=== PATIENT | female | born 1980 | race Caucasian/White ===

== ENCOUNTER 2016-12-10 18:25 | Emergency (ER) | payer SELFPAY ==
[2016-12-10 18:58] VITALS: BP 147/77
--- NOTE | 2016-12-10 19:25 | UC ---
Hip/Pelvis Pain - HPI Summary HPI Summary: 36 year old female presents with right hip pain after kicking a soccer ball. - History Of Current Complaint Chief Complaint: UCLowerExtremity Stated Complaint: HIP INJURY Time Seen by Provider: 12/10/16 19:25 Hx Obtained From: Patient Hx Last Menstrual Period: 2 wks ago Onset/Duration: Sudden Onset Severity Initially: Moderate Severity Currently: Moderate Pain Scale Used: 0-10 Numeric - 8 Location: Diffuse, Discrete At: Character Of Pain: Sharp Aggravating Factor(s): Nothing Alleviating Factor(s): Rest, Position Associated Signs And Symptoms: Positive: Negative - Allergies/Home Medications Allergies/Adverse Reactions: Allergies Allergy/AdvReac Type Severity Reaction Status Date / Time No Known Allergies Allergy Verified 12/10/16 18:58 Home Medications: Home Medications Acetaminophen TAB* [Tylenol TAB*] 3 tab PO ONCE 12/10/16 [History Confirmed ] PMH/Surg Hx/FS Hx/Imm Hx Previously Healthy: Yes - Surgical History Surgical History: None - Social History Alcohol Use: Occasionally Substance Use Type: None Smoking Status (MU): Current Some Day Smoker Review of Systems Constitutional: Negative Skin: Negative Eyes: Negative ENT: Negative Respiratory: Negative Cardiovascular: Negative Gastrointestinal: Negative Genitourinary: Negative Motor: Negative Neurovascular: Negative Musculoskeletal: Myalgia, Other: - right hip pain Neurological: Negative Psychological: Negative All Other Systems Reviewed And Are Negative: Yes Physical Exam Triage Information Reviewed: Yes Vital Signs: Initial Vital Signs Temp 36.4 C 12/10/16 18:55 Pulse 77 12/10/16 18:55 Resp 12 12/10/16 18:55 BP 147/77 12/10/16 18:55 Pulse Ox 100 12/10/16 18:55 Vital Signs Reviewed: Yes Eye Exam: Normal ENT Exam: Normal Dental Exam: Normal Neck exam: Normal Neck: Positive: 1 Respiratory Exam: Normal Cardiovascular Exam: Normal Abdominal Exam: Normal Musculoskeletal: Positive: Other: - right hip pain Neurological Exam: Normal Psychological Exam: Normal Skin Exam: Normal Hip Injury Course/Dx - Differential Dx/Diagnosis Provider Diagnoses: right hip pain Discharge - Discharge Plan Condition: Stable Disposition: HOME Prescriptions: Meloxicam [Mobic] 7.5 mg PO BID PC #30 tab Patient Education Materials: Hip Sprain (ED) Referrals: Viviane Marsh MD [Medical Doctor] - Sarah Turner MD [Primary Care Provider] -
--- NOTE | 2016-12-10 20:20 | RAD ---
INDICATION: Right leg pain COMPARISON: None TECHNIQUE: An AP view of the pelvis and AP views of the hip in neutral and abducted position were obtained FINDINGS: Bones: There are no acute bony findings. Joint spaces: The hips articulate normally. The joint spaces are preserved. SI joints/symphysis: The SI joints and symphysis are intact. Other: None IMPRESSION: NEGATIVE EXAMINATION.
[2016-12-10] MEDS ORDERED: Acetaminop/Codeine 30 MG TAB* 1 TAB (300 MG/30 MG) PO ONE (20:22)
== END 2016-12-10 20:40 | disposition home or self-care (01) ==
LOC: UCEAST 18:25
DX: M25.551 Pain in right hip (principal); Z72.0 Tobacco use
CPT/HCPCS: 99212; A9270-GY; G0463

== ENCOUNTER 2017-09-13 09:35 | Emergency (ER) | payer BC, MEDICAID ==
--- NOTE | 2017-09-13 10:34 | UC ---
Cardiac HPI - HPI Summary HPI Summary: This 36-year-old lady comes to the urgent care today with chief complaint of chest pain radiates to her back that's episode of pain began this morning nothing brought it on nothing makes it better it does not get worse to touch. She had a similar episode 2 days ago that resolved started and resolved on its own. She has a personal history of occasional smoker and on oral contraceptives. Family history sister that of an [place] in her mid 30s grandfather from an [place] in his mid 30s. This episode of chest pain when it came on this morning she felt nauseated cold and clammy with a that is now resolved and the chest pain lingers - History of Current Complaint Chief Complaint: UCChestPain Stated Complaint: CHEST PAIN Time Seen by Provider: 09/13/17 10:25 Hx Obtained From: Patient Hx Last Menstrual Period: 2 weeks ago Onset/Duration: Sudden Onset, Still Present Timing: Constant Pain Intensity: 5 Chest Pain Location: Mid Sternal - radiating in to back Character: Dull/Aching, Tightness Aggravating Factor(s): Nothing Alleviating Factor(s): Nothing Associated Signs & Symptoms: Positive: Chest Pain, Diaphoresis - at onset, Nausea/Vomiting - nausea at on set - Allergy/Home Medications Allergies/Adverse Reactions: Allergies Allergy/AdvReac Type Severity Reaction Status Date / Time No Known Allergies Allergy Verified 12/10/16 18:58 Home Medications: Home Medications Progesterone Bcp 1 tab PO DAILY 09/13/17 [History] PMH/Surg Hx/FS Hx/Imm Hx Previously Healthy: Yes - Surgical History Surgical History: None - Family History Known Family History: Positive: Cardiac Disease - grandfather and sister mid 30's from [place] - Social History Occupation: Employed Full-time Lives: With Family Alcohol Use: Weekly Substance Use Type: None Smoking Status (MU): Current Every Day Smoker Review of Systems Constitutional: Negative Skin: Negative Eyes: Negative ENT: Negative Respiratory: Negative Cardiovascular: Chest Pain - mid sternal radiating in to back Gastrointestinal: Negative Genitourinary: Negative Motor: Negative Neurovascular: Negative Musculoskeletal: Negative Neurological: Negative Psychological: Negative Is Patient Immunocompromised?: No All Other Systems Reviewed And Are Negative: Yes Physical Exam Triage Information Reviewed: Yes Appearance: Well-Appearing, No Pain Distress, Well-Nourished Vital Signs: Initial Vital Signs Temp 98.5 F 09/13/17 09:41 Pulse 47 09/13/17 09:41 Resp 18 09/13/17 09:41 BP 121/74 09/13/17 09:41 Pulse Ox 100 09/13/17 09:41 Vital Signs Reviewed: Yes Eye Exam: Normal Eyes: Positive: Conjunctiva Clear ENT Exam: Normal ENT: Positive: Normal ENT inspection, Hearing grossly normal. Negative: Trismus , Muffled voice, Hoarse voice, Dental tenderness Dental Exam: Normal Neck exam: Normal Neck: Positive: Supple, Nontender, No Lymphadenopathy Respiratory Exam: Normal Respiratory: Positive: Chest non-tender, Lungs clear, Normal breath sounds, No respiratory distress, No accessory muscle use Cardiovascular Exam: Normal Cardiovascular: Positive: No Murmur, Pulses Normal, Brisk Capillary Refill, Bradycardia Abdominal Exam: Normal Abdomen Description: Positive: Nontender, No Organomegaly, Soft. Negative: CVA Tenderness (R), CVA Tenderness (L), Distended, Guarding, Hepatomegaly Bowel Sounds: Positive: Present Musculoskeletal Exam: Normal Musculoskeletal: Positive: Strength Intact, ROM Intact, No Edema Neurological Exam: Normal Neurological: Positive: Alert, Muscle Tone Normal Psychological Exam: Normal Skin Exam: Normal Diagnostics - EKG Cardiac Rate: Bradycardia Cardiac Rhythm: Sinus: Normal ST Segment: Normal EKG Comparison: Other - none available - Assessment/Plan Course Of Treatment: Asprin, iv, ekg transfer to [facility] emergency department for further care - Clinical Impression Provider Diagnoses: Chest pain, nicotine abuse - Physician Notifications Discussed Patient Care With: Pacheco Hammonds Time Discussed With Above Provider: 10:45 Instructed by Provider To: Transfer Discharge - Sign-Out/Discharge Documenting (check all that apply): Patient Departure - Discharge Plan Condition: Good Disposition: TRANS HIGHER LVL OF CARE FAC Referrals: Sarah Turner MD [Primary Care Provider] - - Billing Disposition and Condition Condition: GOOD Disposition: Trans Higher Lvl of Care Fac
[2017-09-13] MEDS ORDERED: Aspirin 81 mg CHEW TAB* 81 MG TAB.CHEW PO ONE (10:36)
[2017-09-13] MEDS ORDERED: Aspirin 81 mg CHEW TAB* 81 MG TAB.CHEW ONE (10:38)
[2017-09-13 11:00] VITALS: BP 116/69
== END 2017-09-13 10:55 | disposition short-term general hospital (02) ==
LOC: UCEAST 09:35
DX: R07.9 Chest pain, unspecified (principal); F17.210 Nicotine dependence, cigarettes, uncomplicated; R00.1 Bradycardia, unspecified
CPT/HCPCS: 93005; 99213; A9270-GY; G0463

== ENCOUNTER 2017-09-13 11:16 | Emergency (ER) | payer MEDICAID ==
[2017-09-13 11:41] LABS: ABS Basophils 0.1 10^3/ul (0-0.2); ABS Eosinophils 0.1 10^3/ul (0-0.6); ABS Lymphocytes 2.3 10^3/ul (1.0-4.8); ABS Monocytes 0.5 10^3/ul (0-0.8); ABS Neutrophils 3.2 10^3/ul (1.5-7.7); ABS Nucleated RBC 0 10^3/ul; Eosinophil % 2.2 % (0-6); Hematocrit 39 % (35-47); Hemoglobin 13.5 g/dl (12.0-16.0); Lymphocyte % 37.4 % (25-47); Mean Corpuscular HGB Conc 35 g/dl (31-36); Mean Corpuscular Hemoglobin 33 pg (27-31); Mean Corpuscular Volume 96 fL (80-97); Mean Platelet Volume 8.2 um3 (7.4-10.4); Nucleated Red Blood Cells % 0; Platelet Count 263 10^3/ul (150-450); Red Blood Count 4.07 10^6/ul (4.00-5.40); Red Cell Distribution Width 13 % (10.5-15); White Blood Count 6.2 10^3/ul (3.5-10.8)
[2017-09-13] MEDS ORDERED: Lidocaine 2% VISCOUS* 15 ML UDC PO ONE (11:41)
[2017-09-13] MEDS ORDERED: Al Hydrox/Mg Hydrox/Simet LIQ* 30 ML UDC PO ONE (11:41)
--- NOTE | 2017-09-13 11:45 | ED ---
HPI Chest Pain - HPI Summary HPI Summary: This is scrjolie Gtz documenting for attending Lamont Ponce MD. The patient is a 36 y/o F BIBA w/ c/o retrosternal chest pain radiating to the left side which onset this morning a couple of hours ago. Patient was drinking a cup of coffee when chest pain onset. Chest pain is described as a squeezing pain, not burning. She reports chest pain made her normal morning routine difficult. At work, her boss suggested going to the doctor. Patient went to [facility] and was subsequently sent to ED. She states that she had chest pain two days ago as well, but notes she had been moving and lifting heavy objects at that time. In the room, she states her chest pain has lessened slightly and the current pain is described as achy. On triage, pain is rated 3/10 and nothing is noted to aggravate/alleviate Sx. She denies N/V, SOB, diaphoresis, palpitations and feelings of being near LOC. Patient denies Hx of HTN, diabetes, HLD. She reports no PSHx. Patient smokes and drinks alcohol, no drug use noted. Patient reports her grandfather of [place] at 38. LNMP was 1.5 weeks ago, patient has no children. Home medications and allergies are reviewed. - History of Current Complaint Chief Complaint: EDChestPainROMI Time Seen by Provider: 09/13/17 11:34 Hx Obtained From: Patient Hx Last Menstrual Period: 2 weeks ago Onset/Duration: Started Hours Ago - onset this morning a couple of hours ago Timing: Constant Initial Severity: Moderate Current Severity: Mild - pain is noted to have lessened slightly in the room Pain Intensity: 3 Pain Scale Used: 0-10 Numeric - 3/10 Chest Pain Location: Discrete at: - retrosternal Chest Pain Radiates: Yes Chest Pain Radiates To:: Other - left side of chest Character: Pressure/Squeezing Aggravating Factor(s): Nothing Alleviating Factor(s): Nothing Associated Signs and Symptoms: Positive: Chest Pain, Other: - NEGATIVE: feelings of being near LOC. Negative: Shortness of Breath, Diaphoresis, Nausea , Palpitations, Vomiting - Allergy/Home Medications Allergies/Adverse Reactions: Allergies Allergy/AdvReac Type Severity Reaction Status Date / Time No Known Allergies Allergy Verified 12/10/16 18:58 PMH/Surg Hx/FS Hx/Imm Hx Endocrine/Hematology History: Denies: Hx Diabetes, Hx Thyroid Disease Cardiovascular History: Denies: Hx Hypercholesterolemia, Hx Hypertension, Hx Peripheral Vascular Disease Respiratory History: Denies: Hx Asthma, Hx Chronic Obstructive Pulmonary Disease (COPD) GI History: Denies: Hx Ulcer Musculoskeletal History: Denies: Hx Arthritis, Hx Osteoporosis Sensory History: Denies: Hx Cataracts, Hx Contacts or Glasses, Hx Glaucoma Opthamlomology History: Denies: Hx Cataracts, Hx Contacts or Glasses, Hx Glaucoma Neurological History: Denies: Hx Headaches, Hx Seizures, Hx Transient Ischemic Attacks (TIA) Psychiatric History: Denies: Hx Anxiety, Hx Depression Infectious Disease History: No Infectious Disease History: Denies: Hx Hepatitis, Hx Human Immunodeficiency Virus (HIV), Traveled Outside the [place] in Last 30 Days - Family History Known Family History: Positive: Cardiac Disease - grandfather and sister mid 30's from [place] - Social History Alcohol Use: Weekly Substance Use Type: Reports: None Smoking Status (MU): Current Every Day Smoker Review of Systems Negative: Skin Diaphoresis Positive: Chest Pain - described as squeezing; retrosternal, radiating to left side . Negative: Palpitations Negative: Shortness Of Breath Negative: Vomiting, Nausea Neurological: Other - NEGATIVE: feelings of being near LOC All Other Systems Reviewed And Are Negative: Yes Physical Exam - Summary Physical Exam Summary: VITAL SIGNS: Reviewed. GENERAL: Patient is a well-developed and nourished female who is lying comfortable in the stretcher. Patient is not in any acute respiratory distress. HEAD AND FACE: No signs of trauma. No ecchymosis, hematomas or skull depressions. No sinus tenderness. EYES: PERRLA, EOMI x 2, No injected conjunctiva, no nystagmus. EARS: Hearing grossly intact. Ear canals and tympanic membranes are within normal limits. MOUTH: Oropharynx within normal limits. NECK: Supple, trachea is midline, no adenopathy, no JVD, no carotid bruit, no c- spine tenderness, neck with full ROM. CHEST: Symmetric, no tenderness at palpation LUNGS: Clear to auscultation bilaterally. No wheezing or crackles. CVS: Regular rate and rhythm, S1 and S2 present, no murmurs or gallops appreciated. ABDOMEN: Soft, non-tender. No signs of distention. No rebound no guarding, and no masses palpated. Bowel sounds are normal. EXTREMITIES: FROM in all major joints, no edema, no cyanosis or clubbing. NEURO: Alert and oriented x 3. No acute neurological deficits. Speech is normal and follows commands. SKIN: Dry and warm Triage Information Reviewed: Yes Vital Signs On Initial Exam: Initial Vitals Temp Pulse Resp BP Pulse Ox 98.7 F 54 17 110/78 96 09/13/17 11:19 09/13/17 11:19 09/13/17 11:19 09/13/17 11:19 09/13/17 11:19 Vital Signs Reviewed: Yes Diagnostics - Vital Signs Vital Signs Temp Pulse Resp BP Pulse Ox 09/13/17 11:19 98.7 F 54 17 110/78 96 - Laboratory Result Diagrams: 09/13/17 10:44 09/13/17 10:44 Lab Statement: Any lab studies that have been ordered have been reviewed, and results considered in the medical decision making process. - Radiology CXR Xray Interpretation: No Acute Changes Radiology Interpretation Completed By: Radiologist - No evidence for acute disease. This report was reviewed by ED physician. - EKG 1154 Cardiac Rate: Bradycardia - Rate of 57 BPM EKG Rhythm: Sinus Bradycardia EKG Interpretation: no ST elevation, T wave inversion in V2 Re-Evaluation - Re-Evaluation First Eval Re-Evaluation Time: 14:00 Comment: Discussed tests and results so far. Second Eval Re-Evaluation Time: 15:20 Comment: Discussed results of tests and follow up plan for patient to be discharged to home and to follow up with PCP within 3 days. Patient is agreeable with plan. Chest Pain Course/Dx - Course Assessment/Plan: This patient is a 36-year-old female who presents to the emergency department with chief complaint of having retrosternal chest pain with radiation to left side. Patient reports that she had some heavy lifting a couple days ago and she thought that the pain was musculoskeletal pain. However today the pain worsened in severity therefore she decided to come to the emergency room for further workup and management. She reports no specific symptoms, no nausea, vomiting no diaphoresis no shortness of breath or palpitations. .Test results without any significant abnormality. Troponin #1 is 0.00 and 4 hours later troponin #2 is also 0.00. Chest x-ray shows no acute pathology. EKG shows no ST elevations. Since the patient doesnt have any comorbidities and the troponin is negative I have low suspicion for acute coronary syndrome. The patient is not tachycardic or hypoxic therefore have no suspicion for a PE. I discussed all the findings and test results with the patient. Patient was instructed to return to the emergency room immediately if any of the symptoms return or worsens. Plan of care was discussed with the patient and understands and agrees. All questions were answered at patient satisfaction. There were no further complaints or concerns. Lung exam before discharge: CTA B/L. Good air exchange. No wheezing or crackles heard. CVS: S1 and S2 present. No murmurs appreciated. Patient is alert and oriented x 3. Patient is hemodynamically stable. Patient will be discharged home with follow up PCP in the next 2-3 days - Chest Pain Differential Diagnosis/HQI/PQRI: Acute [place], ACS, Angina, CHF, Chest Wall, GI Disease, Lower Respiratory Infection - Diagnoses Provider Diagnoses: Atypical chest pain Discharge - Sign-Out/Discharge Documenting (check all that apply): Patient Departure - discharge - Discharge Plan Condition: Stable Disposition: HOME Patient Education Materials: Chest Pain (ED) Referrals: Sarah Turner MD [Medical Doctor] - 3 Days Additional Instructions: Return to ED for any new or worsening symptoms.
[2017-09-13 12:02] LABS: EGFR Non-African American 82.3 (>60)
--- NOTE | 2017-09-13 12:11 | RAD ---
INDICATION: Chest pain. COMPARISON: There are no prior studies available for comparison. TECHNIQUE: A portable view of the chest was obtained. FINDINGS: Cardiac and mediastinal contours appear to be within normal limits. The lungs are clear. No pleural effusion is seen. IMPRESSION: NO EVIDENCE FOR ACUTE DISEASE.
[2017-09-13 15:17] VITALS: BP 121/66
== END 2017-09-13 15:16 | disposition home or self-care (01) ==
LOC: ED 11:16
DX: R07.89 Other chest pain (principal); R00.1 Bradycardia, unspecified; Z82.49 Family history of ischemic heart disease and other diseases of the circulatory system; F12.10 Cannabis abuse, uncomplicated
CPT/HCPCS: 36415; 71045; 80053; 83605; 84484; 84702; 85025; 86140; 93005; 99283; A9270-GY

== ENCOUNTER 2019-02-14 10:16 | Emergency (ER) | payer BC, OTHER ==
--- OUTSIDE RECORDS SUMMARY | 2019-02-14 10:23 | XMS REPORT | Continuity of Care Document ---
:1980 External Reference #:[id number] Author Name Yoly Holloway, DO Address [address] [place] [id number] Problems Inactive Problems Provider Date Acute sinusitis Onset: 09/19/2018 Inactive: 09/19/2018 Social History Type Date Description Comments Sex Unknown Tobacco Use Start: Unknown End: Patient is a former smoker Smoking Status Reviewed: 02/09/19 Patient is a former smoker Allergies, Adverse Reactions, Alerts Description No Known Drug Allergies Medications Active Medications SIG Qnty Indications Ordering Date Provider Cyclobenzaprine HCL one tablet by 15tabs Yoly 02/09/2019 5mg mouth every 8 Karnow, DO Tablets hours as needed for muscle spasm Fluticasone Propionate 2 sprays daily 16units Unknown 08/04/2018 per nostril 50mcg/Act Suspension Nasal History Medications Amoxicillin/Clavulanate Potassium 1 twice daily 20tabs Unknown 2018 - 875-125mg Oral 09/29/2018 Tablets Immunizations CPT Code Status Date Vaccine Lot # [id number] Given 06/24/2009 Tdap - Boostrix/Adacel [id number] Refused 02/09/2015 Influenza Virus Vaccine, Quadrivalent, Split, Im Use 0.25ML Vital Signs Date Vital Result Comment 02/09/2019 3:14pm BP Systolic 118 mmHg BP Diastolic 60 mmHg Height 63.5 inches 5'3.50" Weight 203.00 lb Heart Rate 65 /min Body Temperature 98.5 F O2 % BldC Oximetry 99 % BMI (Body Mass Index) 35.4 kg/m2 09/19/2018 12:00pm BP Systolic 122 mmHg Weight 196.00 lb Heart Rate 55 /min Body Temperature 98.4 F O2 % BldC Oximetry 98 % Results Test Acquired Date Facility Test Result H/L Range Note Urinalysis Profile 02/09/2019 [facility] Urine Color Yellow [address] [place] [address] [phone] Urine Appearance Cloudy Urine Specific [place] 1.013 Normal 1.010-1.030 Urine pH 5.0 Normal 5-9 Urine Urobilinogen Negative Negative Urine Ketones Negative Negative Urine Protein Negative Negative Urine Leukocytes Negative Negative Urine Blood 1+ Abnormal Negative Urine Nitrite Negative Negative Urine Bilirubin Negative Negative Urine Glucose Negative Negative Urine White Blood Cell Trace(0-5/hpf) Absent Urine Red Blood Cell Trace(0-2/hpf) Absent Urine Bacteria 1+ Abnormal Absent Urine Squamous Epithelial Cell Present Abnormal Absent CFM Urinalysis 02/09/2019 [facility] Urine Specific [place] 1.020 ( )- - Ua PH Test Strip 6.0 Ua Color <pending> Ua Appearance <pending> Ua WBC neg Ua Protein neg Urine Glucose QL neg Urine Ketones QL Test Strip neg Urine Bilirubin TTL QL T-Strip neg Urine Urobilinogen QN TS 0.2 Urine Nitrite QL TS neg Ua Occult Blood trace intact Procedures Description No Information Available Medical Devices Description No Information Available Encounters Type Date Location Provider Dx Diagnosis Office Visit 02/09/2019 [facility] Yoly HollowayDO R10.9 Unspecified abdominal 3:15p pain M54.5 Low back pain Assessments Date Code Description Provider 02/09/2019 R10.9 Unspecified abdominal pain Yolycaridad HollowayDO 02/09/2019 M54.5 Low back pain Yolycaridad HollowayDO Plan of Treatment 02/09/2019 - Yoly Holloway DOR10.9 Unspecified abdominal painComments:Left sided flank pain NO CVA tendernessUA with trace blood but very recently finished her mensesdiscussed at some length the possibility I think this is most likely musculoskeletal HOWEVER we discussedother things I was thinking of- kidney stone- pyelo- shinglesWith only trace blood, pain really being on side and not kidney area and not radiating, I think reasonable to monitor for worsening prior togetting imaging to confirm a stone - discussed in detail s/s and when to go to ERVery unlikely pyelogiven no WBCs in urine and lack of systemic symptoms Possibly shingles given isolated area of pain -discussed when to seek medical attention for thisRecommend OTC medsHydrateTry muscle relaxer to see if possibly helps ER if acute [id number] Low back painAllNew Medication:Cyclobenzaprine HCL 5 mg - one tablet by mouth every 8 hours as needed for muscle spasmComments:Follow up if symptoms change, worsen or new symptoms develop or if not better in a reasonable amountof time Functional Status Description No Information Available Mental Status Description No Information Available Referrals Description No Information Available
--- OUTSIDE RECORDS SUMMARY | 2019-02-14 10:23 | XMS REPORT | Continuity of Care Document ---
:1980 External Reference #:[id number] Author Name Yoly Holloway, DO Address [address] [place] [id number] Problems Inactive Problems Provider Date Acute sinusitis [...] CPT Code Status Date Vaccine Lot # [id number] Given 06/24/2009 Tdap - Boostrix/Adacel [id number] Refused 02/09/2015 Influenza Virus Vaccine, Quadrivalent, Split, [...] Result H/L Range Note Urinalysis Profile 02/09/2019 [facility] Urine Color Yellow [address] [place] [address] [phone] Urine Appearance Cloudy Urine Specific [place] 1.013 Normal 1.010-1.030 Urine pH 5.0 Normal [...] Urine Squamous Epithelial Cell Present Abnormal Absent Urine Culture And 02/09/2019 [facility] Urine Culture SEE RESULT [address] [place] [address] [phone] CFM Urinalysis 02/09/2019 [facility] Urine Specific 1.020 ( )- - [place] Ua PH Test Strip 6.0 Ua Color <pending> Ua Appearance <pending> Ua WBC neg Ua Protein neg Urine Glucose QL neg Urine Ketones QL Test Strip neg Urine Bilirubin TTL QL T-Strip neg Urine Urobilinogen QN TS 0.2 Urine Nitrite QL TS neg Ua Occult Blood trace intact 1 SEE RESULT BELOW Name: LUCAS CANELA : [address]: Yoly Holloway DO Acct: [id number] Unit: [id number] AGE: 38 Location: [facility] Re02/09/19 SEX: F Status: REG REF SPEC: [id number] KUSUM: 02/09/[address]: Yoly Holloway DO REQ: [id number] RECD: 02/09/19 STATUS: COMP _ SOURCE: URINE SPDESC: ORDERED: Urine Culture Procedure Result Reported Site Urine Culture Final 02/11/19- 31 ML No growth of clinically significant organisms * ML - Main Lab . END OF REPORT DEPARTMENT OF PATHOLOGY, [address] [place] [address] Nile Damon M.D. Director [facility] # [id number] Procedures Description No Information Available Medical Devices Description No Information Available Encounters Type Date Location Provider Dx Diagnosis Office Visit 02/09/2019 [facility] Main Yoly Holloway DO R10.9 Unspecified abdominal 3:15p pain M54.5 Low back pain Assessments Date Code Description Provider 02/09/2019 R10.9 Unspecified abdominal pain Yoly Holloway DO 02/09/2019 M54.5 Low back pain Yoly Holloway DO Plan of Treatment 02/09/2019 - Yoly Holloway [...] see if possibly helps ER if acute [id number] Low back painAllNew Medication:Cyclobenzaprine HCL 5 mg - one tablet by mouth every 8 hours as needed for muscle spasmComments:Follow up if symptoms change, worsen or new symptoms develop or if not better in a reasonable amountof time Functional Status Description No Information Available Mental Status Description No Information Available Referrals Description No Information Available
[2019-02-14 10:28] VITALS: BP 128/89
--- NOTE | 2019-02-14 11:15 | UC ---
Abdominal Pain Female HPI - HPI Summary HPI Summary: Patient presents to urgent care for evaluation of left abdominal flank pain. Patient states his been intermittent since Saturday. Patient states she saw her primary care doctor Saturday and was told she had some microscopic blood in her urine. Patient was started on Flexeril for back pain. Patient states she continues to have intermittent episodes of pain. States a similar but worse when she lies down. Pain can be sharp and intense. Patient with difficulty getting comfortable during episodes. Patient has had some nausea but no vomiting with the pain is at its worst. Currently the pain is not so bad but states last" couple times. Patient denies any urinary symptoms. No vaginal discharge. No vomiting. No fevers or chills. No trauma. Patient's mother has a history of renal colic. Patient's medications is entered in the EMR by triage was reviewed this visit. - History of Current Complaint Chief Complaint: UCGU Stated Complaint: ABDOMINAL COMPLAINT Time Seen by Provider: 02/14/19 10:48 Hx Obtained From: Patient Hx Last Menstrual Period: 02/04/19 Pain Intensity: 3 Allergies/Adverse Reactions: Allergies Allergy/AdvReac Type Severity Reaction Status Date / Time No Known Allergies Allergy Verified 02/14/19 11:45 PMH/Surg Hx/FS Hx/Imm Hx Previously Healthy: Yes - Surgical History Surgical History: None - Family History Known Family History: Positive: Cardiac Disease - grandfather and sister mid 30's from [place], Other - Mom with renal colic - Social History Occupation: Employed Full-time Lives: With Family Alcohol Use: Weekly Substance Use Type: None Smoking Status (MU): Smoker, Current Status Unknown Review of Systems All Other Systems Reviewed And Are Negative: Yes Constitutional: Positive: Negative Skin: Positive: Negative Eyes: Positive: Negative ENT: Positive: Negative Respiratory: Positive: Negative Cardiovascular: Positive: Negative Gastrointestinal: Positive: Abdominal Pain, Nausea Physical Exam - Summary Physical Exam Summary: Vital Signs Reviewed: Yes A+Ox3, no distress, easily change positions Eyes: Conjunctiva Clear, ANIKA. EOM intact and full ENT: Hearing grossly normal TM x 2 clear, mmoist, uvula midline, no exudate, no erythema Neck: Positive: Supple Respiratory: Positive: No respiratory distress, No accessory muscle use + CTA throughout no w/r Cardiovascular: RRR nl s1, s2 no m/r CBT <2 sec abd soft + BS nt/nd no guarding, no distension, no CVA, unable to reproduce discomfort - full AROM upper and lower against resistance Musculoskeletal Exam: YU x 4 without difficulty Strength Intact, ROM Intact Neurological: Positive: Alert, + sensation throughout Psychological: Positive: Normal Response To examiner Skin: Positive: no rash, no ecchymosis, no rash Triage Information Reviewed: Yes Vital Signs: Initial Vital Signs Temp 98.4 F 02/14/19 10:22 Pulse 60 02/14/19 10:22 Resp 16 02/14/19 10:22 BP 128/89 02/14/19 10:22 Pulse Ox 100 02/14/19 10:22 Abd Pain Female Course/Dx - Course Course Of Treatment: Patient presents urgent care with intermittent but increasing in frequency and intensity left flank pain since Saturday. Patient states the PCPs office on Saturday had a little blood in her urine. Patient was started on Flexeril and treated as muscle for back pain. Patient taking Flexeril she says just makes her sleepy as well as Motrin that seems to help however continues to have episodes of pain. Patient states pain is not reproducible and she has no rash. No fevers chills or urinary symptoms. On exam vital signs are stable. Patient points to her left mid axillary line left mid abdominal area when asked for pain's. Pain is not reproduced. Discussed patient's urine urgent care again has some trace red blood cells. Recommend patient could emergency department for further evaluation and treatment will likely include imaging services are not available at her daycare today. Patient states understanding of plan. She will drive herself by private vehicle. Patient declined any analgesia currently and she took some this morning. I did speak to Lupe, charge nurse in the emergency department, aware patient is coming - Differential Dx/Diagnosis Provider Diagnosis: Left flank pain, Microscopic hematuria Discharge ED - Sign-Out/Discharge Documenting (check all that apply): Patient Departure All imaging exams completed and their final reports reviewed: No Studies - Discharge Plan Condition: Stable Disposition: HOME-RECOMMEND TO ED Patient Education Materials: Hematuria (ED), Flank Pain (ED) Referrals: No Primary Care Phys,NOPCP [Primary Care Provider] - Additional Instructions: The doctor that evaluated you today thinks that you need additional testing that can be completed the emergency department. It is recommended that you go directly to emergency department for further evaluation. This evaluation may include blood work or imaging. This testing will be directed and decided by the provider that evaluate you at the emergency department. If pain becomes worse, you feel lightheaded, you have uncontrolled vomiting, or you have any other concerns while you are being driven to emergency department as recommended to pullover and contact 911. - Billing Disposition and Condition Condition: STABLE Disposition: Home-Recommend to ED
== END 2019-02-14 11:24 | disposition home health service (06) ==
LOC: UCEAST 10:16
DX: R31.29 Other microscopic hematuria (principal); R10.9 Unspecified abdominal pain; R35.0 Frequency of micturition; F17.200 Nicotine dependence, unspecified, uncomplicated
CPT/HCPCS: 81003; 99212; G0463

== ENCOUNTER 2019-02-14 11:37 | Emergency (ER) | payer BC, OTHER ==
--- NOTE | 2019-02-14 12:51 | ED ---
GI/ HPI - HPI Summary HPI Summary: 38 y/o female presented to [facility] with CC of stabbing pain in left flank beginning 02/08/19. Pain is intermittent, worsened with movement and improved when sitting still. The pain also becomes worse at night. Patient does not feel pain when urinating and palpating the left flank does not increase pain. UA done at [facility] found blood in urine, but no indications for UTI or kidney infection. She took Flexeril and ibuprofen this morning but claims that the Flexeril did not help her symptoms. - History of Current Complaint Chief Complaint: EDFlankPain Time Seen by Provider: 02/14/19 12:33 Stated Complaint: FLANK PAIN,PER PT Hx Obtained From: Patient Hx Last Menstrual Period: 02/04/19 Onset/Duration: Started Days Ago Timing: Intermittent Severity: Severe Current Severity: Mild Pain Intensity: 0 Location of Pain: Flank - left Pain Characteristics: Sharp Aggravating Factor(s): Movement Alleviating Factor(s): Lying Still - Allergy/Home Medications Allergies/Adverse Reactions: Allergies Allergy/AdvReac Type Severity Reaction Status Date / Time No Known Allergies Allergy Verified 02/14/19 11:45 Home Medications: Home Medications NK [No Home Medications Reported] 02/14/19 [History Confirmed 02/14/19] PMH/Surg Hx/FS Hx/Imm Hx Endocrine/Hematology History: Denies: Hx Diabetes, Hx Thyroid Disease Cardiovascular History: Denies: Hx Hypercholesterolemia, Hx Hypertension, Hx Peripheral Vascular Disease Respiratory History: Denies: Hx Asthma, Hx Chronic Obstructive Pulmonary Disease (COPD) GI History: Denies: Hx Ulcer Musculoskeletal History: Denies: Hx Arthritis, Hx Osteoporosis Sensory History: Denies: Hx Cataracts, Hx Contacts or Glasses, Hx Glaucoma Opthamlomology History: Denies: Hx Cataracts, Hx Contacts or Glasses, Hx Glaucoma Neurological History: Denies: Hx Headaches, Hx Seizures, Hx Transient Ischemic Attacks (TIA) Psychiatric History: Denies: Hx Anxiety, Hx Depression Infectious Disease History: No Infectious Disease History: Denies: Hx Hepatitis, Hx Human Immunodeficiency Virus (HIV), Traveled Outside the [place] in Last 30 Days - Family History Known Family History: Positive: Cardiac Disease - grandfather and sister mid 30's from [place] - Social History Alcohol Use: Weekly Substance Use Type: Reports: None Smoking Status (MU): Smoker, Current Status Unknown Review of Systems Negative: Fever - vitals show temp 97.8F Positive: flank pain, hematuria All Other Systems Reviewed And Are Negative: Yes Physical Exam - Summary Physical Exam Summary: Appearance: The patient is obese in no acute distress and in no acute pain. Skin: The skin is warm and dry, and skin color reflects adequate perfusion. HEENT: The head is normocephalic and atraumatic. The pupils are equal and reactive. The conjunctivae are clear and without drainage. Nares are patent and without drainage. Mouth reveals moist mucous membranes, and the throat is without erythema and exudate. The external ears are intact. The ear canals are patent and without drainage. The tympanic membranes are intact. Neck: The neck is supple with full range of motion and non-tender. There are no carotid bruits. There is no neck vein distension. Respiratory: Chest is non-tender. Lungs are clear to auscultation and breath sounds are symmetrical and equal. Cardiovascular: Heart is regular rate and rhythm. There is no murmur or rub auscultated. There is no peripheral edema and pulses are symmetrical and equal. Abdomen: The abdomen is soft and non-tender. There are normal bowel sounds heard in all four quadrants and there is no organomegaly palpated. Musculoskeletal: There is no back tenderness noted. Extremities are non-tender with full range of motion. There is good capillary refill. There is no peripheral edema or calf tenderness elicited. Neurological: Patient is alert and oriented to person, place and time. The patient has symmetrical motor strength in all four extremities. Cranial nerves are grossly intact. Deep tendon reflexes are symmetrical and equal in all four extremities. Psychiatric: The patient has an appropriate affect and does not exhibit any anxiety or depression. Triage Information Reviewed: Yes Vital Signs On Initial Exam: Initial Vitals Temp Pulse Resp BP Pulse Ox 97.8 F 55 16 134/90 99 02/14/19 11:42 02/14/19 11:42 02/14/19 11:42 02/14/19 11:42 02/14/19 11:42 Vital Signs Reviewed: Yes Procedures - Sedation Patient Received Moderate/Deep Sedation with Procedure: No Diagnostics - Vital Signs Vital Signs Temp Pulse Resp BP Pulse Ox 02/14/19 11:42 97.8 F 55 16 134/90 99 - Laboratory Result Diagrams: 02/14/19 12:57 02/14/19 12:57 Lab Statement: Any lab studies that have been ordered have been reviewed, and results considered in the medical decision making process. - CT CT ABD/PEL CT Interpretation Completed By: Radiologist Summary of CT Findings: IMPRESSION: 1. NO EVIDENCE FOR ACUTE FINDING. 2. SMALL 2 MM NONOBSTRUCTING RIGHT RENAL CALCULUS. 3. DISTENDED URINARY BLADDER. 4. SMALL HIATAL HERNIA. 5. HEPATIC STEATOSIS. THIS REPORT WAS REVIEWED BY ED PHYSICIAN. GIGU Course/Dx - Course Course Of Treatment: Ms. Canela presented with left flank pain. It seems more musculoskeletal but she's been sent over with a concern for possible kidney stone secondary to microscopic hematuria. CT scan was obtained because of an ultrasound would not give us a definitive diagnosis and was negative. I will continue to treat her symptomatically and recommended close follow-up. - Diagnoses Provider Diagnoses: Back pain Discharge ED - Sign-Out/Discharge Documenting (check all that apply): Patient Departure - DC - Discharge Plan Condition: Stable Disposition: HOME Patient Education Materials: Back Pain (ED) Referrals: [facility] [Outside] Additional Instructions: Follow up with Primary Care Physician in 1-3 days. If you experience new or worsening symptoms please return to the ED. - Billing Disposition and Condition Condition: STABLE Disposition: Home - Attestation Statements Document Initiated by Aakash: Yes Documenting Scribe: KESHAWN TSE Provider For Whom Aakash is Documenting (Include Credential): LALI CORDOVA MD Scribe Attestation: KESHAWN Smith, scribed for LALI CORDOVA MD on 02/16/19 at 1615. Scribe Documentation Reviewed: Yes Provider Attestation: The documentation as recorded by the KESHAWN mckinley accurately reflects the service I personally performed and the decisions made by me, LALI CORDOVA MD Status of Scribradha Document: Viewed
[2019-02-14 13:09] LABS: ABS Basophils 0.1 10^3/ul (0-0.2); ABS Eosinophils 0.1 10^3/ul (0-0.6); ABS Lymphocytes 1.8 10^3/ul (1.0-4.8); ABS Monocytes 0.3 10^3/ul (0-0.8); ABS Neutrophils 2.9 10^3/ul (1.5-7.7); Eosinophil % 2.1 %; Hematocrit 38 % (35-47); Hemoglobin 13.4 g/dL (12.0-16.0); Lymphocyte % 34.4 %; Mean Corpuscular HGB Conc 35 g/dL (31-36); Mean Corpuscular Hemoglobin 33 pg (27-31); Mean Corpuscular Volume 95 fL (80-97); Mean Platelet Volume 7.3 fL (7.4-10.4); Nucleated Red Blood Cells % 0.1; Platelet Count 293 10^3/uL (150-450); Red Blood Count 4.01 10^6 /uL (3.70-4.87); Red Cell Distribution Width 13 % (10-15); White Blood Count 5.2 10^3/uL (3.5-10.8)
[2019-02-14 13:44] LABS: ALT 41 U/L (7-52); AST 29 U/L (13-39); Albumin 4.3 g/dL (3.2-5.2); Albumin/Globulin Ratio 1.7 (1-3); Alkaline Phosphatase 55 U/L (34-104); Anion Gap 7 mmol/L (2-11); Blood Urea Nitrogen 10 mg/dL (6-24); C Reactive Protein 5.38 mg/L (<8.01); CO2 Carbon Dioxide 26 mmol/L (22-32); Calcium 9.3 mg/dL (8.6-10.3); Chloride 102 mmol/L (101-111); EGFR African American 101.5 (>60); EGFR Non-African American 83.9 (>60); Globulin 2.6 g/dL (2-4); Glucose 93 mg/dL (70-100); Potassium 4.2 mmol/L (3.5-5.0); Sodium 135 mmol/L (135-145); Total Protein 6.9 g/dL (6.4-8.9)
[2019-02-14 13:51] LABS: HCG Pregnancy < 0.60 mIU/mL
[2019-02-14 15:24] LABS: Urine Appearance Clear; Urine Bilirubin Negative (Negative); Urine Blood Negative (Negative); Urine Color Straw; Urine Glucose Negative (Negative); Urine Ketones Negative (Negative); Urine Nitrite Negative (Negative); Urine Protein Negative (Negative); Urine Specific Gravity 1.005 (1.010-1.030); Urine Urobilinogen Negative (Negative)
[2019-02-14 16:33] VITALS: BP 135/89
== END 2019-02-14 16:25 | disposition home or self-care (01) ==
LOC: ED 11:37
DX: M54.9 Dorsalgia, unspecified (principal); N20.0 Calculus of kidney; K44.9 Diaphragmatic hernia without obstruction or gangrene; K76.0 Fatty (change of) liver, not elsewhere classified; F17.200 Nicotine dependence, unspecified, uncomplicated
CPT/HCPCS: 36415; 74176; 80053; 81003; 83605; 84702; 85025; 86140; 99282

== ENCOUNTER 2020-02-22 18:04 | Inpatient (IN) ==
[2020-02-22] MEDS ORDERED: Lactated Ringers 1000 ml BAG 1,000 ML IV ONE (18:41)
[2020-02-22] MEDS ORDERED: Dinoprostone 10 MG VAG.SUPP VAGINAL ONE (18:41)
[2020-02-22] MEDS ORDERED: Buffered Lidocaine 1% SYRIN 1 ml INTRADERM ONE (18:41)
[2020-02-22 20:24] LABS: Urine Benzodiazepine Screen None Detected (None Detect); Urine Cannabinoids Screen None Detected (None Detect); Urine Opiates Screen None Detected (None Detect)
[2020-02-23 20:12] LABS: ABS Eosinophils 0.1 10^3/ul (0-0.6); ABS Lymphocytes 1.9 10^3/ul (1.0-4.8); ABS Monocytes 0.5 10^3/ul (0-0.8); Eosinophil % 0.7 %; Hematocrit 38 % (35-47); Hemoglobin 13.6 g/dL (12.0-16.0); Lymphocyte % 25.3 %; Mean Corpuscular HGB Conc 36 g/dL (31-36); Mean Corpuscular Hemoglobin 33 pg (27-31); Mean Corpuscular Volume 93 fL (80-97); Mean Platelet Volume 9.1 fL (7.4-10.4); Platelet Count 204 10^3/uL (150-450); Red Blood Count 4.08 10^6 /uL (3.70-4.87); Red Cell Distribution Width 13 % (10-15); White Blood Count 7.4 10^3/uL (3.5-10.8)
[2020-02-23] MEDS ORDERED: fentaNYL 100 mcg/2 ml 50 MCG/ML VIAL IV SLOW PU ONE (21:12)
[2020-02-24] MEDS ORDERED: Morphine 10 MG/ML VIAL (1 ml) IV ONE (00:49)
[2020-02-24] MEDS ORDERED: Promethazine INJ(RESTRICTED) 25 MG/ML 1 ml VIAL IV ONE (00:51)
[2020-02-24] MEDS ORDERED: Morphine 10 MG/ML VIAL (1 ml) ONE (01:18)
[2020-02-24] MEDS ORDERED: Oxytocin in LR 20 UNITS/1,000 ML BAG IVPB SCH ×2 (09:00→23:45)
[2020-02-24] MEDS: Lactated Ringers 1000 ml BAG 1,000 ML IV SCH ×2 (12:19→20:59)
[2020-02-24] MEDS ORDERED: OBEPIDURAL 250 ML EPIDURAL ONE (16:58)
[2020-02-24] MEDS ORDERED: Lactated Ringers 1000 ml BAG 500 ML IV PRN ×2 (17:22)
[2020-02-24] MEDS ORDERED: Sodium Citrate/Citric Acid LIQ 15 ML UDC PO PRN (17:22)
[2020-02-24] MEDS ORDERED: Phenylephrine 40 mcg/mL 10mL (400mcg) SYRINGE IV PUSH PRN ×2 (17:22)
[2020-02-24] MEDS ORDERED: EPHEDrine (Pressors) 50 MG/ML VIAL IV PUSH PRN ×2 (17:22)
[2020-02-24] MEDS ORDERED: Lactated Ringers 1000 ml BAG 1,000 ML IV ONE (17:22)
[2020-02-24] MEDS ORDERED: Lactated Ringers 1000 ml BAG 1,000 ML IV SCH (18:00)
[2020-02-24] MEDS ORDERED: OBEPIDURAL 250 ML EPIDURAL SCH (18:00)
[2020-02-24] MEDS ORDERED: Witch Hazel PAD JAR TOPICAL PRN (23:10)
[2020-02-24] MEDS ORDERED: Glycerin ADULT 2.4 gm SUPP PR PRN (23:10)
[2020-02-25] MEDS ORDERED: Lidocaine 1% VIAL 10 MG/ML VIAL ONE (02:01)
[2020-02-25] MEDS ORDERED: RHO D Immune Globulin (HUMAN) 300 MCG = 1,500 I.U. INJ IM PRN (06:00)
[2020-02-25 06:56] LABS: ABS Basophils 0.1 10^3/ul (0-0.2); ABS Lymphocytes 2.1 10^3/ul (1.0-4.8); ABS Neutrophils 12.1 10^3/ul (1.5-7.7); Eosinophil % 0.2 %; Hematocrit 35 % (35-47); Hemoglobin 12.1 g/dL (12.0-16.0); Lymphocyte % 13.5 %; Mean Corpuscular HGB Conc 35 g/dL (31-36); Mean Corpuscular Hemoglobin 33 pg (27-31); Mean Corpuscular Volume 94 fL (80-97); Mean Platelet Volume 9.2 fL (7.4-10.4); Platelet Count 203 10^3/uL (150-450); Red Blood Count 3.71 10^6 /uL (3.70-4.87); Red Cell Distribution Width 13 % (10-15); White Blood Count 15.2 10^3/uL (3.5-10.8)
[2020-02-26 08:28] VITALS: BP 131/79
== END 2020-02-26 12:27 | disposition home or self-care (01) | DRG 807 ==
LOC: MCHOBOUT 18:04 → MCHOB 18:33
PROVIDERS: ADMIT Midwife; ATTEND Midwife